=== PATIENT | female | born 1990 | race Hispanic/Latino ===

== ENCOUNTER 2023-06-06 12:31 | Emergency (ER) | payer OTHER ==
[2023-06-06 13:31] LABS: Specific Gravity 1.022 (1.005-1.030)
[2023-06-06 13:36] LABS: Specific Gravity 1.022 (1.005-1.030); Sqamous Epithelial <5 /HPF (None Seen); Urine Bacteria None Seen /HPF (<20); Urine Bilirubin NEGATIVE (Negative); Urine Blood Negative (Negative); Urine Clarity Clear (Clear); Urine Color Light-Yellow (Yellow); Urine Culture Reflex Order NOT NEEDED; Urine Glucose NEGATIVE (Negative); Urine Ketones NEGATIVE (Negative); Urine Microscopic Reflex YN ORDER UMIC; Urine Nitrite NEGATIVE (Negative); Urine Protein NEGATIVE (Negative); Urine RBC <5 /HPF (None Seen); Urine Urobilinogen Normal (Normal); Urine WBC <5 /HPF (<5)
[2023-06-06 13:40] LABS: Absolute Basophils 0.1 K/uL (0-0.5); Absolute Eosinophils 0.6 K/uL (0-0.5); Absolute Lymphocytes (CBC) 2.1 K/uL (0.7-4.9); Absolute Monocytes 0.5 K/uL (0.1-1.3); Absolute Neutrophil 6.7 K/uL (1.8-8.0); Basophils % 0.6 % (0-1.3); Hemoglobin 10.3 g/dL (12.0-15.0); Lymphocytes % 20.8 % (15.3-44.8); MCH 27.1 pg (27.0-35.0); MCHC 33.1 g/dL (32.0-36.0); MCV 81.9 fL (80-100); MPV 8.2 fL (7.6-11.3); Monocytes % 4.7 % (3.3-12.3); Neutrophils % 67.9 % (41.7-73.7); Platelets 241 thou/uL (152-406); RBC Red Blood Cell Count 3.79 M/uL (3.86-4.86); Red Cell Distribution Width 14.1 % (12.1-15.2)
[2023-06-06 14:13] LABS: Anion Gap 8.7 mEq/L (5.0-15.0); Potassium 3.7 mEq/L (3.5-5.1)
--- NOTE | 2023-06-06 15:06 | RAD REPORT ---
EXAM DESCRIPTION: US - OB Limited - 06/06/2023 2:28 pm CLINICAL HISTORY: with abdominal pain COMPARISON: None FINDINGS: Single live intrauterine transverse presentation. Cardiac activity 140 beats per minute. Normal amniotic fluid. Placenta is anterior. No subchorionic/retroplacental bleed. No placenta previa Cervix closed. Femur length 2.2 centimeters 16 weeks 5 days Uterine contraction visualized during the examination The right and left at adnexa unremarkable IMPRESSION: Single live intrauterine transverse presentation. Estimated gestational age 16 weeks 5 days ADDISON 11/16/2023 If a survey is desired it should be performed in approximately 1 and 1-2 weeks .
--- NOTE | 2023-06-06 15:10 | EDPHYS ---
Physician Documentation [facility] Name: Lacey Shaikh Age: 32 yrs Sex: Female : 1990 Arrival Date: 06/06/2023 Time: 12:31 Bed 25 Private MD: ED Physician Yvan Jennings HPI: 06/05 13:03 This 32 yrs old Female presents to ER via Unassigned with complaints of Abdominal Pain, kb 11 weeks . 13:03 Pt is a 32 year old female who presents for right sided abd pain that started this kb morning. Reports pain came on when she stood from standing and again when lifting one of her children. Also reports lower abd cramping over the last couple of days. LMP 03/2023. Positive pregnany test mid to late April. First OB appt scheduled for next week. Denies vaginal bleeding. A1. . 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 - Infectious Disease History:: Denies. - Social history:: Smoking status: Patient denies any tobacco usage or history of. ROS: 13:07 Constitutional: As per HPI kb Exam: 13:07 Constitutional: This is a well developed, well nourished patient who is awake, alert, kb and in no acute distress. Head/Face: Normocephalic, atraumatic. ENT: Moist Mucous membranes Cardiovascular: Regular rate Respiratory: Respirations even and unlabored. No increased work of breathing. Talking in full sentences Skin: Warm, dry with normal turgor. Normal color. MS/ Extremity: Pulses equal, no cyanosis. Neurovascular intact. Full, normal range of motion. Neuro: Awake and alert, GCS 15, oriented to person, place, time, and situation. Moves all extremities. Normal gait. 13:07 Abdomen/GI: Inspection: abdomen appears normal, Bowel sounds: normal, in all quadrants, Palpation: soft, in all quadrants, mild abdominal tenderness, in the suprapubic area, Vital Signs: 13:01 BP 116 / 56; Pulse 93; Resp 18 S; Temp 97.8(TE); Pulse Ox 99% on R/A; aa5 MDM: 13:00 Patient medically screened. kb 13:07 Data reviewed: vital signs, nurses notes. kb 13:08 Differential diagnosis: threatened Ab, ectopic , uti. kb 15:08 Counseling: I had a detailed discussion with the patient and/or guardian regarding the kb historical points, exam findings, and any diagnostic results supporting the discharge/admit diagnosis, lab results, radiology results, the need for outpatient follow up, an OB/Gyne specialist, to return to the emergency department if symptoms worsen or persist or if there are any questions or concerns that arise at home. 06/05 13:08 Order name: Abo/rh Typing; Complete Time: 14:27 kb 06/05 13:08 Order name: Basic Metabolic Panel; Complete Time: 14:15 kb 06/05 13:08 Order name: CBC with Diff; Complete Time: 14:06 kb 06/05 13:08 Order name: Test, Urine; Complete Time: 13:32 kb 06/05 13:08 Order name: Quantitative Hcg; Complete Time: 14:15 kb 06/05 13:08 Order name: Urinalysis w/ reflexes; Complete Time: 13:50 kb 06/05 13:55 Order name: OB Limited; Complete Time: 15:06 EDMS 06/05 13:08 Order name: IV Saline Lock; Complete Time: 13:32 kb 06/05 13:08 Order name: Labs collected and sent; Complete Time: 13:32 kb 06/05 13:08 Order name: NPO; Complete Time: 13:32 kb Administered Medications: No medications were administered Disposition Summary: 06/06/23 15:10 Discharge Ordered Notes: Location: Home kb Condition: Stable kb Diagnosis - Lower abdominal pain, unspecified kb - 16 weeks gestation of kb Followup: kb - With: Emergency Department - When: As needed - Reason: Worsening of condition Followup: kb - With: Private Physician - When: 2 - 3 days - Reason: Recheck today's complaints, Continuance of care, Re-evaluation by your physician Discharge Instructions: - Discharge Summary Sheet kb - Pelvic Pain, Female, [id number] kb - Abdominal Pain During , [id number] kb Forms: - Medication Reconciliation Form kb - Antibiotic Education kb - Prescription Opioid Use kb - Patient Portal Instructions kb - Leadership Thank You Letter kb Signatures: Dispatcher [employer] EDMS Ann Lawler, GUIDANCE DIRECTOR-C GUIDANCE DIRECTOR-Lani Balderas, RN RN aa5 Corrections: (The following items were deleted from the chart) 13: 13:07 PMHx: None; aa5 aa5 13: 13:07 PMHx: D\T\C; aa5 aa5 13: 13:09 ABO/RH TYPING+BB.LAB.BRZ ordered. EDMS EDMS : 13:09 BASIC METABOLIC PANEL+C.LAB.BRZ ordered. EDMS EDMS : 13:09 CBC+H.LAB.BRZ ordered. EDMS EDMS : 13:09 Test, Urine+UC.LAB.BRZ ordered. EDMS EDMS : 13:09 QUANTITATIVE HCG+C.LAB.BRZ ordered. EDMS EDMS : 13:09 Urinalysis+U.LAB.BRZ ordered. EDMS EDMS : 13:09 Transvaginal Ob+US.RAD.BRZ ordered. EDMS EDMS
--- NOTE | 2023-06-06 15:10 | ER ---
Nurse's Notes [facility] Name: Lacey Shaikh Age: 32 yrs Sex: Female : 1990 Arrival Date: 06/06/2023 Time: 12:31 Bed 25 Private MD: Diagnosis: Lower abdominal pain, unspecified;16 weeks gestation of Presentation: 06/05 13:01 Chief complaint: Patient states: "I got a positive test in the middle of aa14 april". Pt reports lower abdominal cramping that began 2 days ago, reports pain to right lower abdomen, pt states "right where the area is at", denies vaginal bleeding. 13:01 Acuity: MACHELLE 3 aa5 13:01 Method Of Arrival: Ambulatory aa5 13:01 Coronavirus screen: At this time, the client does not indicate any symptoms associated aa5 with coronavirus-19. Ebola Screen: Patient denies travel to an Ebola-affected area in the 21 days before illness onset. Initial Sepsis Screen: Does the patient meet any 2 criteria? No. Patient's initial sepsis screen is negative. Does the patient have a suspected source of infection? No. Patient's initial sepsis screen is negative. Risk Assessment: Do you want to hurt yourself or someone else? Patient reports no desire to harm self or others. Onset of symptoms was May 2023. 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 - Infectious Disease History:: Denies. - Social history:: Smoking status: Patient denies any tobacco usage or history of. Screenin:00 [facility] ED Fall Risk Assessment (Adult) History of falling in the last 3 months, hb including since admission No falls in past 3 months (0 pts) Confusion or Disorientation No (0 pts) Intoxicated or Sedated No (0 pts) Impaired Gait No (0 pts) Mobility Assist Device Used No (0 pt) Altered Elimination No (0 pt) Score/Fall Risk Level 0 - 2 = Low Risk Oriented to surroundings, Maintained a safe environment, Educated pt \\T\\ family on fall prevention, incl call for assistance when getting out of bed. Abuse screen: Denies threats or abuse. Denies injuries from another. Nutritional screening: No deficits noted. Tuberculosis screening: No symptoms or risk factors identified. Assessment: 14:51 General: Appears in no apparent distress. Behavior is calm, cooperative. Pain: Pain hb currently is 3 out of 10 on a pain scale. Neuro: Level of Consciousness is awake, alert, obeys commands, Oriented to person, place, time, situation. Cardiovascular: Patient's skin is warm and dry. Respiratory: Respiratory effort is even, unlabored, Respiratory pattern is regular, symmetrical. GI: Reports lower abdominal pain. : No signs and/or symptoms were reported regarding the genitourinary system. EENT: No signs and/or symptoms were reported regarding the EENT system. Derm: Skin is pink, warm \\T\\ dry. Musculoskeletal: No signs and/or symptoms reported regarding the musculoskeletal system. Vital Signs: 13:01 BP 116 / 56; Pulse 93; Resp 18 S; Temp 97.8(TE); Pulse Ox 99% on R/A; aa5 ED Course: 12:36 Patient arrived in ED. im 13:00 [facility] Lawler [facility]NP-C [facility] kb 13:00 Yvan Jennings MD is Attending Physician. kb 13:01 Arm band placed on. aa5 13:02 Triage completed. aa5 13:19 Urine collected: clean catch specimen, sent to lab. aa5 13:32 Initial lab(s) drawn, by sd, sent to lab. Inserted saline lock: 20 gauge in left jg11 antecubital area, using aseptic technique. Blood collected. 13:32 Abo/rh Typing Sent. jg11 13:32 Basic Metabolic Panel Sent. jg11 13:32 CBC with Diff Sent. jg11 13:32 Quantitative Hcg Sent. jg11 14:28 Patient taken to ultrasound. hb 14:29 OB Limited In Process Unspecified. EDMS 14:50 Patient moved back from ultrasound. hb 14:58 Anitha Ramirez, RN is Primary Nurse. hb 15:00 Patient has correct armband on for positive identification. Provided Education on: hb tests, result times, use of call light. 15:00 No provider procedures requiring assistance completed. hb 15:11 IV discontinued, intact, bleeding controlled, No redness/swelling at site. Pressure hb dressing applied. Administered Medications: No medications were administered Medication: 15:00 VIS not applicable for this client. hb Outcome: 15:10 Discharge ordered by . [place] 15:11 Discharged to home ambulatory, hb 15:11 Condition: stable 15:11 Discharge instructions given to patient, Instructed on discharge instructions, follow up and referral plans. medication usage, Demonstrated understanding of instructions, follow-up care, medications, 15:12 Patient left the ED. hb Signatures: Dispatcher [employer] EDHI Ann Lawler, CODE OFFICIAL-C CODE OFFICIAL-Lani Balderas RN RN aa5 Anitha Ramirez, DAI RN Rosamaria Gunn Jordan jg11 Corrections: (The following items were deleted from the chart) 13:05 13:01 Chief complaint: Patient states: "I got a positive test in the middle aa5 of april". Pt reports lower abdominal cramping that began 2 days ago, denies vaginal bleeding. aa5 13:06 13:01 LMP 02/09/2023, unknown aa5 aa5 13:08 13:07 PMHx: None; aa5 aa5 13:08 13:07 PMHx: D\\T\\C; aa5 aa5
[2023-06-06 15:51] VITALS: BP 116/56; TEMP 97.8; O2SAT 99
== END 2023-06-06 15:12 | disposition home or self-care (01) ==
LOC: ER 12:31
DX: O26.892 Other specified pregnancy related conditions, second trimester (principal); Z3A.16 16 weeks gestation of pregnancy
CPT/HCPCS: 36415; 76815; 80048; 81001; 81025; 84702; 85025; 86900; 86901

== ENCOUNTER 2023-08-02 13:41 | Emergency (ER) | payer OTHER, SELFPAY ==
--- OUTSIDE RECORDS SUMMARY | 2023-08-02 13:46 | XMS REPORT | Continuity of Care Document ---
Author Name Unknown Address [address] [facility] [address] [place] [address] [facility] thconnect Address [address] 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 Role Phone Pcp, Patient Does Not Have A Primary Care Physic dolly SUSANNE YAÑEZ Attending Clinician Jorge Pritchard MD Attending Clinician [phone] DIPAK ANDERSEN Attending Clinician UnavailDipak Velasco MD Attending Clinician JORGE LOZADA Attending Clinician Unavailable Doctor Unassigned, [place] Attending Clinician U navailable Room, [facility] Attending Clinician Unavailable NILAY HADLEY Attending Clinician Unabrooks gomez Ultrasound, [facility] Attending Clinician UnavailSusanne Huston MD Attending Clinician + Nilay Hadley MD Attending Clinician + Nellie Joseph DO Attending Clinician [phone] NELLIE JOSEPH Attending Clinician Unavailable Thomas Flowers NP Attending Clinician [phone] THOMAS FLOWERS Attending Clinician Unavaila gavi 1, [facility] Attending Clinician Unavailab VANGIE Troncoso Attending Clinician Un available DIPAK ANDERSEN Admitting Clinician Unavaila Dipak Lopez MD Admitting Clinician [phone] JORGE LOZADA Admitting Clinician Unavailable Jorge Lozada MD Admitting Clinician Payers Payer Name Policy Type Policy Number Effective Date Expirati on Date Source [place] [employer] [id number] 2022 00:00:00 Problems Condition Name Condition Details Condition Category Status Onset Date Resolution Date Last Treatment Date Treating Clinician Comments Source Status post section Status post section Disease Active 0 - 00:00: 00 [facility] Acute blood loss anemia Acute blood loss anemia Disease Active 5 00:00: 00 [facility] 34 weeks gestation of 34 weeks gestation of Disease Active 5- 00:00: 00 [facility] Obesity (BMI 30-39.9) Obesity (BMI 30-39.9) Disease Active 5-22 00:00: 00 [facility] Poor growth affecting management of mother in third trimester, fetus 2 of multiple gestation Poor growth affecting management of mother in third trimester, fetus 2 of multiple gestation Disease Active 0 5-18 00:00: 00 [facility] Low back pain during in third trimester Low back pain during in third trimester Disease Active 0 4-20 00:00: 00 [facility] High-risk in third trimester High-risk in third trimester Disease Active 3-09 00:00: 00 [facility] Monochorio charmaine diamniotic twin gestation in third trimester Monochorio charmaine diamniotic twin gestation in third trimester Disease Active 2-24 00:00: 00 [facility] No known active problems No known active problems Disease [facility] Allergies, Adverse Reactions, Alerts Allergy Name Allergy Type Status Severity Reaction(s) Onset Date Inactive Date Treating Clinician Comments Source NO KNOWN ALLERGIE S Drug Class Active [facility] Social History Social Habit Start Date Stop Date Quantity Comments Source ASSERTION 2021-11-15 00:00:00 [facility] Alcohol intake 2022-07-03 00:00:00 2022-07-03 00:00:00 Ex-drinker (finding) [facility] Exposure to SARS-CoV-2 (event) 2022-06-17 00:00:00 2022-06-27 11:06:00 Not sure [facility] Tobacco use and exposure 2022-03-07 00:00:00 2022-03-07 00:00:00 Smokeless tobacco non-user [facility] Sex Assigned At 1990 00:00:00 1990 00:00:00 [facility] Smoking Status Start Date Stop Date Source Never smoked tobacco [facility] Medications Ordered Medication Name Filled Medication Name Start Date Stop Date Current Medication? Ordering Clinician Indication Dosage Frequency Signature (SIG) Comments Components Source ferrous sulfate tablet 325 mg 07-05 14:00: 00 Yes 325mg 325 mg, Oral, QM// FRI, First dose (after last modificati on) on Fri07/05/22 at 0900, Until Discontinu ed, Routine [facility] 25/iron fum/folic/d pennington (-1 ORAL) 07-04 03:59: 40 07-04 00:00 :00 No Take by mouth. [facility] [id number] fum-folic () 27 mg iron- 1 mg folic tablet 07-04 00:00: 00 Yes [id number] 1{tbl} Take 1 tablet by mouth in the morning. [facility] docusate 100 mg capsule 07-04 00:00: 00 Yes [id number] 200mg Take 2 capsules by mouth once daily as needed for Constipati on. [facility] ibuprofen 600 mg tablet 07-04 00:00: 00 Yes [id number] 600mg Take 1 tablet by mouth every 6 (six) hours as needed (Pain). Take with food or milk. [facility] ferrous sulfate 325 mg (65 mg iron) tablet 07-04 00:00: 00 Yes [id number] 325mg Take 1 tablet by mouth in the morning. [facility] simethicone 80 mg chewable tablet 07-04 00:00: 00 Yes [id number] 80mg Take 1 tablet by mouth after meals and at bedtime. [facility] HYDROcodone -acetaminop hen 5-325 mg tablet 07-04 00:00: 00 07-12 04:59 :00 No [id number] 1{tbl} Take 1 tablet by mouth every 6 (six) hours as needed for Pain (scale 7-10) (Pain scale above 4) for up to 7 days. Do not exceed 3 grams of acetaminop hen in 24 hours. Indication s: acute pain [facility] oxyCODONE immediate release tablet 5 mg 07-02 22:01: 48 Yes 5mg 5 mg, Oral, Q6HPRN, Starting on Fri07/02/22 at 1701, Until Discontinu ed, Routine, Breakthrou gh pain not relieved with Scheduled Tylenol and ibuprofen< br>solar crew member approving Restricted medication : OSEI PARKS [facility] ibuprofen (IBU) tablet 800 mg 07-02 17:00: 00 Yes 800mg 800 mg, Oral, Q6H, First dose (after last modificati on) on Fri07/02/22 at 1200, Until Discontinu ed, Routine [facility] acetaminoph en (TYLENOL) tablet 650 mg 07-02 17:00: 00 Yes 650mg 650 mg, Oral, Q6H, First dose on Fri07/02/22 at 1200, Until Discontinu ed, Routine [facility] ascorbic acid (vitamin C) (VITAMIN C) tablet 500 mg 07-02 14:00: 00 Yes 500mg 500 mg, Oral, DAILY, First dose on Fri07/02/22 at 0900, Until Discontinu ed, Routine [facility] foLIC acid (FOLATE) tablet 1 mg 07-02 14:00: 00 Yes 1mg 1 mg, Oral, DAILY, First dose on Fri07/02/22 at 0900, Until Discontinu ed, Routine [facility] sennosides- docusate sodium (SENOKOT-S) 8.6-50 mg per tablet 1 tablet 07-02 14:00: 00 Yes 1{tbl} 1 tablet, Oral, DAILY, First dose on Fri07/02/22 at 0900, Until Discontinu ed, Routine [facility] ferrous sulfate tablet 325 mg 07-02 13:00: 00 07-03 15:24 :22 No 325mg 325 mg, Oral, TID MEALS, First dose on Fri07/02/22 at 0800, Until Discontinu ed, Routine [facility] famotidine (PEPCID AC) tablet 20 mg 07-02 01:00: 00 Yes 20mg 20 mg, Oral, BID, First dose on Fri07/01/22 at 2000, Until Discontinu ed, Routine [facility] polyethylen e glycol 3350 powder 17 g 07-01 23:00: 00 Yes 17g 17 g, Oral, DAILY, First dose on Fri07/01/22 at 1800, Until Discontinu ed, Routine [facility] ibuprofen (IBU) tablet 600 mg 07-01 23:00: 00 07-02 16:22 :44 No 600mg 600 mg, Oral, Q6H, First dose on Fri07/01/22 at 1800, Until Discontinu ed, Routine [facility] lactated ringers IV infusion 1,000 mL 07-01 22:15: 00 07-02 04:10 :00 No 1000mL at 125 mL/hr, 1,000 mL, IV Infusion, ONCE, 1 dose, On Fri07/01/22 at 1715, Routine [facility] rho(D) immune globulin (RHOGAM) syringe 300 mcg 07-01 22:02: 50 Yes 300ug 300 mcg, Intramuscu lar, ONCE, For 1 dose, Conditiona l, Routine [facility] diphenhydrA MINE (BENADRYL) injection 25 mg 07-01 22:02: 46 Yes 25mg 25 mg, Slow IV Push, Q6HPRN, Starting on Fri07/01/22 at 1702, Until Discontinu ed, Routine, Itching [facility] diphenhydrA MINE (BENADRYL) tablet 25 mg 07-01 22:02: 46 Yes 25mg 25 mg, Oral, Q6HPRN, Starting on Fri07/01/22 at 1702, Until Discontinu ed, Routine, Sleep, Itching [facility] ondansetron (ZOFRAN (PF)) injection 4 mg 07-01 22:02: 46 Yes 4mg 4 mg, Slow IV Push, Q8HPRN, Starting on Fri07/01/22 at 1702, Until Discontinu ed, Routine, Nausea and Vomiting (N/V) [facility] bisacodyL (DULCOLAX) suppository 10 mg 07-01 22:02: 46 Yes 10mg 10 mg, Rectal, QDAILYPRN, Starting on Fri07/01/22 at 170, Until Discontinu ed, Routine, Constipati on [facility] simethicone (GAS RELIEF (SIMETHICON E)) chewable tablet 160 mg 07-01 22:02: 46 Yes 160mg 160 mg, Oral, PC+HSPRN, Starting on Fri07/01/22 at 1702, Until Discontinu ed, Routine, Gas [facility] docusate (COLACE) capsule 200 mg 07-01 22:02: 46 Yes 200mg 200 mg, Oral, QDAILYPRN, Starting on Fri07/01/22 at 1702, Until Discontinu ed, Routine, Constipati on [facility] magnesium hydroxide (MILK OF MAGNESIA) 400 mg/5 mL suspension 30 mL 07-01 22:02: 46 Yes 30mL 30 mL, Oral, QDAILYPRN, Starting on Fri07/01/22 at 1702, Until Discontinu ed, Routine, Constipati on [facility] lactated ringers IV infusion 1,000 mL 07-01 22:02: 46 Yes 1000mL at 125 mL/hr, 1,000 mL, IV Infusion, PRN, 1 dose, Starting on Fri07/01/22 at 1702, Until Discontinu ed, Routine [facility] acetaminoph en ADULT (OFIRMEV) injection 1,000 mg 07-01 20:30: 00 07-01 20:13 :00 No 1000mg 1,000 mg, IV Infusion, at 400 mL/hr Administer over 15 Minutes, ONCE, 1 dose, On Fri07/01/22 at 1530, Routine
Indicatio n: Non-periop erative Patient
Approved by: Anesthesia Pain Service [facility] lactated ringers IV infusion 1,000 mL 07-01 17:45: 00 07-01 22:02 :57 No 1000mL at 125 mL/hr, 1,000 mL, IV Infusion, CONTINUOUS , Starting on Fri07/01/22 at 1245, Until Fri07/01/22 at 1702, AYAKA [facility] ceFAZolin (ANCEF) 2,000 mg in NaCl 0.9% (NS) 100 mL MINI-BAG 07-01 14:00: 00 07-01 16:23 :00 No 2000mg 2,000 mg, IV Piggyback, ONCE, 1 dose, On Fri07/01/22 at 0900, Administer over 30 Minutes, 100 mL
Reas on for Anti-Infec tive: Surgical Prophylaxi s
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
Duration of therapy: within 24 hours of surgery [facility] sodium citrate-cit andreea acid (BICITRA) 500-334 mg/5 mL solution 30 mL 07-01 12:39: 42 07-01 15:53 :00 No 30mL 30 mL, Oral, PRE-PROCED URE ONCE, 1 dose, Starting on Fri07/01/22 at 0739, Until Discontinu ed, Routine, Surgery/Pr ocedure [facility] 25/iron fum/folic/d penning[place] (-1 ORAL) 07-01 07:09: 03 Yes Take by mouth. [facility] betamethaso ne acet,sod phos (CELESTONE SOLUSPAN) 6 mg/mL injection 12 mg 06-28 20:16: 00 06-28 20:31 :00 No 12mg 12 mg, Intramuscu lar, ONCE, 1 dose, On Fri06/28/22 at 1530, Routine [facility] 25/iron fum/folic/d penning[place] (-1 ORAL) 06-28 16:05: 10 Yes Take by mouth. [facility] betamethaso ne acet,sod phos (CELESTONE SOLUSPAN) 6 mg/mL injection 12 mg 06-27 20:06: 00 06-27 20:38 :00 No 12mg 12 mg, Intramuscu lar, ONCE, 1 dose, On Vickie 06/27/22 at 1515, Routine [facility] 25/iron fum/folic/d penning[place] (-1 ORAL) 06-27 16:13: 33 Yes Take by mouth. [facility] 25/iron fum/folic/d penning[place] (-1 ORAL) 3-03 15:38: 06 Yes Take by mouth. [facility] 25/iron fum/folic/d penning[place] (-1 ORAL) 2-24 11:00: 23 Yes Take by mouth. [facility] 25/iron fum/folic/d [place] (-1 ORAL) 1-26 14:42: 51 Yes Take by mouth. [facility] Vital Signs Vital Name Observation Time Observation Value Comments S rohit Systolic blood pressure 2022-07-04 13:41:00 110 mm[Hg] [facility] Diastolic blood pressure 2022-07-04 13:41:00 73 mm[Hg] [facility] Heart rate 2022-07-04 13:41:00 72 /min [facility] Body temperature 2022-07-04 13:41:00 36.39 Perla [facility] Respiratory rate 2022-07-04 13:41:00 18 /min [facility] Oxygen saturation in Arterial blood by Pulse oximetry 2022-07-04 13:41:00 99 /min [facility] Body height 2022-07-01 12:49:00 162.6 cm [facility] Body weight 2022-07-01 12:49:00 84.369 kg [facility] BMI 2022-07-01 12:49:00 31.93 kg/m2 [facility] Systolic blood pressure 2022-07-01 20:00:00 134 mm[Hg] [facility] Diastolic blood pressure 2022-07-01 20:00:00 78 mm[Hg] [facility] Heart rate 2022-07-01 20:00:00 50 /min [facility] Respiratory rate 2022-07-01 20:00:00 12 /min [facility] Oxygen saturation in Arterial blood by Pulse oximetry 2022-07-01 20:00:00 96 /min [facility] Body temperature 2022-07-01 18:45:00 36.17 Perla [facility] Body height 2022-07-01 12:49:00 162.6 cm [facility] Body weight 2022-07-01 12:49:00 84.369 kg [facility] BMI 2022-07-01 12:49:00 31.93 kg/m2 [facility] Heart rate 2022-06-28 20:15:00 79 /[facility] Oxygen saturation in Arterial blood by Pulse oximetry 2022-06-28 20:15:00 98 /min [facility] Systolic blood pressure 2022-06-28 20:10:00 130 mm[Hg] [facility] Diastolic blood pressure 2022-06-28 20:10:00 70 mm[Hg] [facility] Respiratory rate 2022-06-28 20:10:00 20 /min [facility] Systolic blood pressure 2022-06-27 20:21:00 122 mm[Hg] [facility] Diastolic blood pressure 2022-06-27 20:21:00 71 mm[Hg] [facility] Heart rate 2022-06-27 20:21:00 79 /min [facility] Body temperature 2022-06-27 20:21:00 37.22 Perla [facility] Respiratory rate 2022-06-27 20:21:00 18 /min [facility] Oxygen saturation in Arterial blood by Pulse oximetry 2022-06-27 20:21:00 98 /min [facility] Systolic blood pressure 2022-06-27 18:37:00 122 mm[Hg] [facility] Diastolic blood pressure 2022-06-27 18:37:00 60 mm[Hg] [facility] Heart rate 2022-06-27 18:37:00 76 /min [facility] Body temperature 2022-06-27 18:37:00 36.61 Perla [facility] Respiratory rate 2022-06-27 18:37:00 18 /min [facility] Body height 2022-06-27 18:37:00 162.6 cm [facility] Body weight 2022-06-27 18:37:00 84.55 kg [facility] BMI 2022-06-27 18:37:00 32.00 kg/m2 [facility] Systolic blood pressure 2022-06-21 18:32:00 110 mm[Hg] [facility] Diastolic blood pressure 2022-06-21 18:32:00 66 mm[Hg] [facility] Heart rate 2022-06-21 18:32:00 80 /min [facility] Body temperature 2022-06-21 18:32:00 36.44 Perla [facility] Respiratory rate 2022-06-21 18:32:00 18 /min [facility] Body height 2022-06-21 18:32:00 162.6 cm [facility] Body weight 2022-06-21 18:32:00 81.557 kg [facility] BMI 2022-06-21 18:32:00 30.86 kg/m2 [facility] Systolic blood pressure 2022-06-17 16:02:00 114 mm[Hg] [facility] Diastolic blood pressure 2022-06-17 16:02:00 63 mm[Hg] [facility] Heart rate 2022-06-17 16:02:00 85 /min [facility] 2022-06-17 16:02:00 36.28 Perla [facility] Body height 2022-06-17 16:02:00 162.6 cm [facility] weight 2022-06-17 16:02:00 81.285 kg [facility] BMI 2022-06-17 16:02:00 30.76 kg/m2 [facility] Systolic blood pressure 2022-06-13 14:22:00 103 mm[Hg] [facility] Diastolic blood pressure 2022-06-13 14:22:00 64 mm[Hg] [facility] Heart rate 2022-06-13 14:22:00 80 /min [facility] Body temperature 2022-06-13 14:22:00 36.67 Perla [facility] Respiratory rate 2022-06-13 14:22:00 18 /min [facility] Body height 2022-06-13 14:22:00 162.6 cm [facility] Body weight 2022-06-13 14:22:00 80.468 kg [facility] BMI 2022-06-13 14:22:00 30.45 kg/m2 [facility] Systolic blood pressure 2022-05-30 21:08:00 112 mm[Hg] [place] [facility] Diastolic blood pressure 2022-05-30 21:08:00 47 mm[Hg] [facility] Heart rate 2022-05-30 21:08:00 85 /min [facility] Body temperature 2022-05-30 21:08:00 36.44 Perla [facility] Respiratory rate 2022-05-30 21:08:00 18 /min [facility] Body height 2022-05-30 21:08:00 162.6 cm [facility] weight 2022-05-30 21:08:00 77.565 kg [facility] BMI 2022-05-30 21:08:00 29.35 kg/m2 [facility] Systolic blood pressure 2022-04-18 15:16:00 110 mm[Hg] [facility] Diastolic blood pressure 2022-04-18 15:16:00 59 mm[Hg] [facility] Heart rate 2022-04-18 15:16:00 79 /min [facility] Body temperature 2022-04-18 15:16:00 36.72 Perla [facility] Body weight 2022-04-18 15:16:00 71.487 kg [facility] BMI 2022-04-18 15:16:00 27.05 kg/m2 [facility] Systolic blood pressure 2022-04-12 20:48:00 117 mm[Hg] [facility] Diastolic blood pressure 2022-04-12 20:48:00 49 mm[Hg] [facility] Heart rate 2022-04-12 20:48:00 93 /min [facility] Body temperature 2022-04-12 20:48:00 36.89 Perla [facility] Respiratory rate 2022-04-12 20:48:00 20 /min [facility] Oxygen saturation in Arterial blood by Pulse oximetry 2022-04-12 20:48:00 99 /min [facility] Body weight 2022-04-12 20:05:00 71.305 kg [facility] BMI 2022-04-12 20:05:00 26.98 kg/m2 [facility] Systolic blood pressure 2022-04-05 16:59:00 105 mm[Hg] [facility] Diastolic blood pressure 2022-04-05 16:59:00 64 mm[Hg] [facility] Heart rate 2022-04-05 16:59:00 66 /min [facility] Respiratory rate 2022-04-05 16:59:00 18 /min [facility] Body height 2022-04-05 16:59:00 162.6 cm [facility] Body weight 2022-04-05 16:59:00 70.308 kg [facility] BMI 2022-04-05 16:59:00 26.61 kg/m2 [facility] Systolic blood pressure 2022-03-07 20:40:00 112 mm[Hg] [facility] Diastolic blood pressure 2022-03-07 20:40:00 63 mm[Hg] [facility] Heart rate 2022-03-07 20:40:00 95 /min [facility] Body temperature 2022-03-07 20:40:00 36.72 Perla [facility] Respiratory rate 2022-03-07 20:40:00 18 /min [facility] Body height 2022-03-07 20:40:00 162.6 cm [facility] Body weight 2022-03-07 20:40:00 65.318 kg [facility] BMI 2022-03-07 20:40:00 24.72 kg/m2 [facility] Procedures Procedure Date / Time Performed Performing Clinician Source CBC WITH DIFF [facility]22-07-02 08[facility]02 [facility] ROUTINE & RHYTHM STRIP 2022-07-01 [facility] RHYTHM STRIP 2022-07-01 18:27:48 [facility] CBC WITHOUT DIFF 2022-07-01 18:15:00 Odalys Wu [facility] CBC WITHOUT DIFF 2022-07-01 18:15:00 Odalys Wu [facility] VENOUS CORD GAS 2022-07-01 17:05:00 Dipak Andersen [facility] VENOUS CORD GAS 2022-07-01 17:05:00 Dipak Andersen [facility] SECTION 2022-07-01 15:52:00 Dipak Andersen [facility] SECTION 2022-07-01 15:52:00 Dipak Andersen [facility] ABORH CONFIRMATION (LAB ONLY) 2022-07-01 14:42:00 Dipak Andersen [facility] ABORH CONFIRMATION (LAB ONLY) 2022-07-01 14:42:00 Dipak Andersen [facility] CBC WITH DIFF 2022-07-01 13:50:00 Delores [facility] RUBELLA SCREEN IGG 2022-07-01 13:50:00 Estrella, [facility] HEPATITIS B SURFACE ANTIGEN 2022-07-01 13:50:00 Estrella, [facility] HB ABO GROUPING 2022-07-01 13:50:00 Sonya Estrella [facility] RHO (D) IMMUNE GLOBULIN 2022-07-01 13:50:00 Me Gavin [facility] HIV 1/2 AG-AB WITH REFLEX 2022-07-01 13:50:00 Estrella, [facility] SYPHILIS IGG/IGM 2022-07-01 13:50:00 Sonya Estrella [facility] CBC WITH DIFF 2022-07-01 13:50:00 Delores [facility] RUBELLA SCREEN IGG 2022-07-01 13:50:00 Estrella, [facility] HEPATITIS B SURFACE ANTIGEN 2022-07-01 13:50:00 Estrella, [facility] HB ABO GROUPING 2022-07-01 13:50:00 Sonya Estrella [facility] RHO (D) IMMUNE GLOBULIN 2022-07-01 13:50:00 Me Gavin [facility] HIV 1/2 AG-AB WITH REFLEX 2022-07-01 13:50:00 Estrella, [facility] SYPHILIS IGG/IGM 2022-07-01 13:50:00 Sonya Estrella [facility] POCT GLUCOSE (AUTOMATED) 2022-07-01 13:21:00 G[facility] POCT GLUCOSE (AUTOMATED) 2022-07-01 13:21:00 Dipak Andersen [facility] HOSPITAL ADMISSION 2022-07-01 05:01:00 Doctor Un assigned, [place] [facility] NON-STRESS TEST 2022-06-28 01:59:44 Jorge Lozada [facility] CONSENT/REFUSAL FOR DIAGNOSIS AND TREATMENT 2022-06-27 19:47:49 Doctor Unassigned, [place] [facility] ASSIGNMENT OF BENEFITS 2022-06-27 19:47:33 Docto r Unassigned, [place] [facility] NON-STRESS TEST 2022-06-21 19:05:40 Katie Agudelo [facility] >14 WEEKS US LIMITED 2022-06-21 19:05:28 Riana Agudelo [facility] NON-STRESS TEST 2022-06-17 16:37:08 Jorge Lozada [facility] NON-STRESS TEST 2022-06-13 15:20:07 Jorge Lozada [facility] POCT URINALYSIS W/O SPECIFIC GRAVITY 2022-06-13 00:00:00 Jorge Lozada [facility] POCT URINALYSIS W/O SPECIFIC GRAVITY 2022-05-30 21:12:00 Jorge Lozada [facility] POCT URINALYSIS W/O SPECIFIC GRAVITY 2022-04-18 00:00:00 Jorge Lozada [facility] AUTHORIZATION FOR RELEASE OF PHI 2022-04-13 06:01:00 Doctor Unassigned, [place] [facility] CONSENT/REFUSAL FOR DIAGNOSIS AND TREATMENT 2022-04-12 19:52:31 Doctor Unassigned, [place] [facility] AUTHORIZATION FOR RELEASE OF PHI 2022-04-12 06:01:00 Doctor Unassigned, [place] [facility] L&D VISIT (NON-DELIVERED) 2022-04-12 06:01:00 Doctor Unassigned, [place] [facility] AUTHORIZATION FOR RELEASE OF PHI 2022-04-12 06:01:00 Doctor Unassigned, [place] [facility] L&D VISIT (NON-DELIVERED) 2022-04-12 06:01:00 Doctor Unassigned, [place] [facility] POCT URINALYSIS W/O SPECIFIC GRAVITY 2022-04-05 00:00:00 Thomas Flowers [facility] SECOND AND THIRD TRIMESTER ULTRASOUND 2022-04-04 18:04:00 Thomas Flowers [facility] SECOND AND THIRD TRIMESTER ULTRASOUND 2022-03-15 21:33:00 Thomas Flowers [facility] ASSIGNMENT OF BENEFITS 2022-03-15 20:16:19 Docto r Unassigned, [place] [facility] POCT TEST 2022-03-07 22:23:00 Rodo Flowers [facility] POCT URINALYSIS W/O SPECIFIC GRAVITY 2022-03-07 22:23:00 Thomas Flowers [facility] Encounters Start Date/Time End Date/Time Encounter Type Admission Type Attending Clinicians Care Facility Care Department Encounter ID Source 2022-03-14 14:14:36 Outpatient [facility] [id number] [facility] 2022-07-10 10:45:00 2022-07-10 10:45:00 Outpatient P SUSANNE REYNOSO [facility] [id number] [facility] 2022-07-10 00:00:00 2022-07-10 00:00:00 Telephone Jorge Lozada [facility] [id number] [place] [facility] 07:08:00 2022-07-04 16:41:00 Inpatient X DIPAK ANDERSEN [facility] [id number] [facility] 2022-07-01 07:08:00 2022-07-04 16:41:00 Hospital Encounter AndersenDipak vivas [facility] 1..840.114 350.1.13.10 4.2.7.2.686 [id number] [facility] 2022-07-02 13:00:00 2022-07-02 13:00:00 Outpatient R JORGE LOZADA [facility] [id number] [facility] 2022-07-01 13:05:00 2022-07-01 15:10:00 Surgery AndersenDipak [facility] 1.2.840.114 350.1.13.10 4.2.7.2.686 [id number] [id number] [facility] 2022-07-01 00:00:00 2022-07-01 00:00:00 Orders Only Doctor Unassigned, [place] Crossing [facility] 1.2.840.114 350.1.13.10 4.2.7.2.686 [id number] [facility] 2022-06-28 14:57:00 2022-06-28 15:55:00 Outpatient P JORGE LOZADA [facility] [id number] [facility] 2022-06-28 14:57:00 2022-06-28 15:55:00 Hospital Encounter Neville Jorge [facility] 1.2.840.114 350.1.13.10 4.2.7.2.686 [id number] [id number] [facility] 2022-06-28 00:00:00 2022-06-28 00:00:00 Telephone Jorge Lozada [facility] 1.2840.114 350.1.13.10 4.2.7.2.686 [id number] 134 [id number] [facility] 2022-06-27 14:40:00 2022-06-27 16:10:00 Outpatient P JORGE LOZADA [facility] [id number] [facility] 2022-06-27 14:40:00 2022-06-27 16:10:00 Hospital Encounter NevilleJorge [facility] 1.2.840.114 350.1.13.10 4.2.7.2.686 [id number] [id number] [facility] 2022-06-27 13:00:00 2022-06-27 14:08:07 Routine Visit Room, Adc Nst Jorge Lozada [facility] 1.2.840.114 350.1.13.10 4.2.7.2.686 [id number] 134 [id number] [facility] 2022-06-27 11:00:00 2022-06-27 12:00:31 Outpatient Luciano NILAY HADLEY [facility] [id number] [facility] 2022-06-27 11:00:00 2022-06-27 12:00:00 Patient Financial Services Specialist Visit Ultrasound, Susanne Horner Nilay Hadley Johnathanuvcamilo [facility] W[employer]UR[employer] SERVICE TECHNICIAN [facility] 1.2.840.114 350.1.13.10 4.2.7.2.686 [id number] [facility] 2022-06-24 13:00:00 2022-06-24 13:00:00 Outpatient R NEVILLE [facility] [id number] [facility] 2022-06-21 13:00:00 2022-06-21 13:15:00 Routine Visit Room, [facility] Neville [facility] 1.2.840.114 350.1.13.10 4.2.7.2.686 [id number] 134 [id number] [facility] 2022-06-21 13:00:00 2022-06-21 13:00:00 [facility] [id number] 2022-06-20 10:00:00 2022-06-20 10:00:00 Outpatient R [facility] [id number] [facility] 2022-06-17 11:00:00 2022-06-17 11:15:00 Routine Visit Room, [facility] 1.2.840.114 350.1.13.10 4.2.7.2.686 [id number] [facility] 2022-06-17 11:00:00 2022-06-17 11:00:00 Outpatient R JORGE LOZADA [facility] [id number] [facility] 2022-06-13 10:45:00 2022-06-13 11:12:41 Outpatient P NILAY HADLEY [facility] [id number] [facility] 2022-06-13 10:45:00 2022-06-13 11:12:41 Patient Financial Services Specialist Visit Ultrasound, KatieSusanne LouisNilay roblero Ikuvpamelagiclarke [facility] WIND [employer]UR[employer]INE SERVICE TECHNICIAN [facility] MATERNAL & CHILD [facility] 1.2840.114 350.1.13.10 4.2.7.2.686 [id number] [facility] 2022-06-13 09:00:00 2022-06-13 09:15:00 [facility] 1.2840.114 350.1.13.10 4.2.7.2.686 [id number] 134 [id number] [facility] 2022-05-30 15:15:00 2022-05-30 16:29:30 Routine Visit Jorge Lozada [facility] 1.2840.114 350.1.13.10 4.2.7.2.686 [id number] 134 [id number] [facility] 2022-05-30 11:00:00 2022-05-30 13:02:43 Outpatient P SUSANNE REYNOSO [facility] [id number] [facility] 2022-05-30 11:00:00 2022-05-30 12:00:00 Patient Financial Services Specialist Visit Ultrasound, KatieSusanne Louis [facility] [employer] SERVICE TECHNICIAN [facility] MATERNAL [facility]ILD [facility] 1.2840.114 350.1.13.10 4.2.7.2.686 [id number] [facility] 2022-05-16 11:00:00 2022-05-16 11:24:24 Patient Financial Services Specialist Visit Ultrasound, Susanne Horner [facility] [employer] SERVICE TECHNICIAN [facility] 1..840.114 350.1.13.10 4.2.7.2.686 [id number] [facility] 2022-05-16 11:00:00 2022-05-16 11:00:00 Outpatient P MARYLIN Bailey [facility] [id number] [facility] 2022-05-02 11:00:00 2022-05-02 11:39:50 Patient Financial Services Specialist Visit Ultrasound, Susanne Horner [facility] W[employer] SERVICE TECHNICIAN [facility] & [facility]ILD [facility] .840.114 350.1.13.10 4.2.7.2.686 [id number] [facility] 2022-05-02 11:00:00 2022-05-02 11:00:00 Outpatient P NELLIE JOSEPH NELLIE [facility] [id number] [facility] 2022-04-18 09:00:00 2022-04-18 11:35:28 Routine Visit Jorge Lozada [facility] .84.114 350.1.13.10 4.2.7.2.686 [id number] 134 [id number] [facility] 2022-04-18 10:15:00 2022-04-18 10:34:18 Patient Financial Services Specialist Visit Ultrasound, Susanne Horner [facility] W[employer]UR[employer] SERVICE TECHNICIAN [facility] & [facility]ILD [facility] 1.840.114 350.1.13.10 4.2.7.2.686 [id number] [facility] 2022-04-18 10:15:00 2022-04-18 10:34:18 Outpatient P SUSANNE REYONSO [facility] [id number] [facility] 2022-04-18 00:00:00 2022-04-18 00:00:00 Case Management Jieangelo [facility] 1.2840.114 350.1.13.10 4.2.7.2.686 [id number] 134 [id number] [facility] 2022-04-13 00:00:00 2022-04-13 00:00:00 Orders Only Doctor Unassigned, [place] [facility] 1.2.840.114 350.1.13.10 4.2.7.2.686 [id number] [facility] 2022-04-12 14:08:00 2022-04-12 15:20:00 Emergency Jorge Lozada [facility] 1.2840.114 350.1.13.10 4.2.7.2.686 [id number] [id number] [facility] 2022-04-12 14:08:00 2022-04-12 15:20:00 Outpatient X JORGE LOZADA [facility] [id number] [facility] 2022-04-12 00:00:00 2022-04-12 00:00:00 Telephone Loree [facility] 1.2840.114 350.1.13.10 4.2.7.2.686 [id number] 134 [id number] [facility] 2022-04-12 00:00:00 2022-04-12 00:00:00 Orders Only Doctor Unassigned, [place] [facility] 1.2840.114 350.1.13.10 4.2.7.2.686 [id number] [facility] 2022-04-05 10:45:00 2022-04-05 11:23:25 Routine Visit Thomas Flowers [facility] 1.840.114 350.1.13.10 4.2.7.2.686 [id number] 134 [id number] [facility] 2022-04-05 10:45:00 2022-04-05 11:23:25 Outpatient R THOMAS FLOWERS [facility] [id number] [facility] 2022-04-04 10:45:00 2022-04-04 12:43:19 Patient Financial Services Specialist Visit Ultrasound, Ang-Susanne Louis [facility] W[employer] SERVICE TECHNICIAN [facility] MATERNAL & CHILD [facility] 1.840.114 350.1.13.10 4.2.7.2.686 [id number] [facility] 2022-04-04 10:45:00 2022-04-04 10:45:00 Outpatient P SUSANNE REYNOSO [facility] [id number] [facility] 2022-04-04 00:00:00 2022-04-04 00:00:00 Case Management Thomas Flowers [facility] 1.840.114 350.1.13.10 4.2.7.2.686 [id number] [facility] 2022-03-15 14:15:00 2022-03-15 15:46:03 Patient Financial Services Specialist Visit 1, [facility] Jake Nellie [facility] W[employer]UR[employer] SERVICE TECHNICIAN [facility] MATERNAL & CHILD [facility] 1..840.114 350.1.13.10 4.2.7.2.686 [id number] [facility] 2022-03-15 14:15:00 2022-03-15 14:15:00 Outpatient P [facility] [id number] [facility] 2022-03-15 00:00:00 2022-03-15 00:00:00 Orders Only Doctor Unassigned, [place] [facility] 1.2.840.114 350.1.13.10 4.2.7.2.686 [id number] [facility] 2022-03-11 09:30:00 2022-03-11 09:30:00 Outpatient R [facility] [id number] [facility] 2022-03-09 21:12:00 2022-03-10 01:09:00 Emergency E VANGIE [facility] [address] [facility] 2022-03-07 14:30:00 2022-03-07 15:09:16 Initial Visit Thomas Flowers [facility] 1..840.114 350.1.13.10 4.2.7.2.686 [id number] 134 [id number] [facility] 2022-03-07 14:30:00 2022-03-07 15:09:16 Outpatient R THOMAS FLOWERS CHERYAL [facility] [id number] [facility] 2022-02-18 14:30:50 2022-02-18 14:30:50 Outpatient [facility] [id number] Eddie Hammond Jaswant Results Test Description Test Time Test Comments Results Result Co mments Source [facility] [id number] 19:03:00 * Test Item Value Reference Range Interpretation Comme nts Rubella screen IgG (test code = 9566551883) Positive Negative COLEEN (test code = COLEEN) Positive - Indicat es the patient was exposed to Rubella through infection or vaccination.Negative - Indicates the patient could be susceptible to Rubella infection.Equivocal - A second specimen should be sent. [facility] [place] [id number] 16:52:59* Test Item Value Reference Range Interpretation Comme nts Syphilis IgG/IgM (test code = 37214-9) Non-reactive Non-reactive COLEEN (test code = COLEEN) Non-reactive - No serologic evidence of T. pallidum infection. Cannot exclude incubating or early syphilis. Submit a second specimen in 2-4 weeks if syphilis is clinically suspected. Equivocal - Further testing to follow. Reactive - Further testing to follow. Lab Interpretation (test code = 62197-4) Normal [facility] ONLY - SYPHILIS [id number] 16:52:59* Test Item Value Reference Range Interpretation Comme nts Syphilis IgG/IgM (test code = 17191-2) Non-reactive Non-reactive COLEEN (test code = COLEEN) Non-reactive - No serologic evidence of T. pallidum infection. Cannot exclude incubating or early syphilis. Submit a second specimen in 2-4 weeks if syphilis is clinically suspected. Equivocal - Further testing to follow. Reactive - Further testing to follow. Lab Interpretation (test code = 26461-9) Normal [facility] (D) IMMUNE [id number] 22:03:58* Test Item Value Reference Range Interpretation Comme nts RHIG CANDIDATE? (test code = 5188) No- see comment Patient is not a candidate for RhIg- Patient is Rh Positive.Performed at [facility] Laboratory Services - [facility] Blood [address] Free: [phone] No. [id number] [facility] (D) IMMUNE [id number] 22:03:58* Test Item Value Reference Range Interpretation Comme nts RHIG CANDIDATE? (test code = 5188) No- see comment Patient is not a candidate for RhIg- Patient is Rh Positive.Performed at [facility] Laboratory Services - [facility] Blood [address] Free: [phone] No. [id number] [facility]ORD [id number] 18:08:11* Test Item Value Reference Range Interpretation Comme nts BASE EXCESS, CORD (test code = 0387866373) -1.7 mEq/L AC PH, CORD (BEAKER) (test code = 9705564385) 7.28 7.18-7.38 PC02, CORD (test code = 8553620102) 57 See_Comment [Automated messa ge] The system which generated this result transmitted reference range: 32 - 66 mmHg. The reference range was not used to interpret this result as normal/abnormal. PO2, CORD (test code = 1414186029) 20 See_Comment [Automated messa ge] The system which generated this result transmitted reference range: 10 - 30 mmHg. The reference range was not used to interpret this result as normal/abnormal. BICARBONATE, CORD (test code = 1313732462) 26 See_Comment [Automated messa ge] The system which generated this result transmitted reference range: 17 - 27 mEq/L. The reference range was not used to interpret this result as normal/abnormal. [facility] CORD [id number] 18:08:11* Test Item Value Reference Range Interpretation Comme nts BASE EXCESS, CORD (test code = 5623394618) -1.7 mEq/L AC PH, CORD (BEAKER) (test code = 8012017239) 7.28 7.18-7.38 PC02, CORD (test code = 8688596036) 57 See_Comment [Automated messa ge] The system which generated this result transmitted reference range: 32 - 66 mmHg. The reference range was not used to interpret this result as normal/abnormal. PO2, CORD (test code = 9648726942) 20 See_Comment [Automated messa ge] The system which generated this result transmitted reference range: 10 - 30 mmHg. The reference range was not used to interpret this result as normal/abnormal. BICARBONATE, CORD (test code = 0760718667) 26 See_Comment [Automated messa ge] The system which generated this result transmitted reference range: 17 - 27 mEq/L. The reference range was not used to interpret this result as normal/abnormal. [facility] Cord [id number] 18:03:46* Test Item Value Reference Range Interpretation Comme nts BASE EXCESS, CORD (test code = 7214449393) -1.0 mEq/L AC PH, CORD (BEAKER) (test code = 5575309340) 7.26 7.18-7.38 PC02, CORD (test code = 5191263474) 62 See_Comment [Automated messa ge] The system which generated this result transmitted reference range: 32 - 66 mmHg. The reference range was not used to interpret this result as normal/abnormal. PO2, CORD (test code = 1889878159) 11 See_Comment [Automated messa ge] The system which generated this result transmitted reference range: 10 - 30 mmHg. The reference range was not used to interpret this result as normal/abnormal. BICARBONATE, CORD (test code = 5952776821) 28 See_Comment H [Automated me ssage] The system which generated this result transmitted reference range: 17 - 27 mEq/L. The reference range was not used to interpret this result as normal/abnormal. Lab Interpretation (test code = 76526-8) Abnormal [facility] [id number] 18:03:46* Test Item Value Reference Range Interpretation Comme nts BASE EXCESS, CORD (test code = 8036392055) -1.0 mEq/L AC PH, CORD (BEAKER) (test code = 1858636642) 7.26 7.18-7.38 PC02, CORD (test code = 5324552131) 62 See_Comment [Automated messa ge] The system which generated this result transmitted reference range: 32 - 66 mmHg. The reference range was not used to interpret this result as normal/abnormal. PO2, CORD (test code = 5724086655) 11 See_Comment [Automated messa ge] The system which generated this result transmitted reference range: 10 - 30 mmHg. The reference range was not used to interpret this result as normal/abnormal. BICARBONATE, CORD (test code = 0989192807) 28 See_Comment H [Automated me ssage] The system which generated this result transmitted reference range: 17 - 27 mEq/L. The reference range was not used to interpret this result as normal/abnormal. Lab Interpretation (test code = 44148-9) [facility]normal [facility] [id number] 18:00:20* Test Item Value Reference Range Interpretation Comme nts VENOUS BASE EXCESS, CORD (test code = 8358031160) -1.1 mEq/L VENOUS PH, CORD (test code = 2981964816) 7.36 7.25-7.45 VENOUS PC02, CORD (test code = 7902829208) 45 See_Comment [Automated messa ge] The system which generated this result transmitted reference range: 27 - 49 mmHg. The reference range was not used to interpret this result as normal/abnormal. VENOUS PO2, CORD (test code = 1515051115) 30 See_Comment [Automated me ssage] The system which generated this result transmitted reference range: 17 - 41 mmHg. The reference range was not used to interpret this result as normal/abnormal. VENOUS BICARBONATE, CORD (test code = 3889106063) 25 See_Comment [Automated messa ge] The system which generated this result transmitted reference range: 12 - 29 mEq/L. The reference range was not used to interpret this result as normal/abnormal. [facility] CORD [id number] 18:00:20* Test Item Value Reference Range Interpretation Comme nts VENOUS BASE EXCESS, CORD (test code = 1516365756) -1.1 mEq/L VENOUS PH, CORD (test code = 6592221453) 7.36 7.25-7.45 VENOUS PC02, CORD (test code = 7769985317) 45 See_Comment [Automated messa ge] The system which generated this result transmitted reference range: 27 - 49 mmHg. The reference range was not used to interpret this result as normal/abnormal. VENOUS PO2, CORD (test code = 6194643046) 30 See_Comment [Automated me ssage] The system which generated this result transmitted reference range: 17 - 41 mmHg. The reference range was not used to interpret this result as normal/abnormal. VENOUS BICARBONATE, CORD (test code = 6988195045) 25 See_Comment [Automated messa ge] The system which generated this result transmitted reference range: 12 - 29 mEq/L. The reference range was not used to interpret this result as normal/abnormal. [facility] Cord [id number] 17:56:01* Test Item Value Reference Range Interpretation Comme nts VENOUS BASE EXCESS, CORD (test code = 4977524575) -1.1 mEq/L VENOUS PH, CORD (test code = 8667488089) 7.32 7.25-7.45 VENOUS PC02, CORD (test code = 8277708913) 51 See_Comment H [Automated me ssage] The system which generated this result transmitted reference range: 27 - 49 mmHg. The reference range was not used to interpret this result as normal/abnormal. VENOUS PO2, CORD (test code = 9724897596) 18 See_Comment [Automated me ssage] The system which generated this result transmitted reference range: 17 - 41 mmHg. The reference range was not used to interpret this result as normal/abnormal. VENOUS BICARBONATE, CORD (test code = 8110760614) 26 See_Comment [Automa jose roberto message] The system which generated this result transmitted reference range: 12 - 29 mEq/L. The reference range was not used to interpret this result as normal/abnormal. Lab Interpretation (test code = 54669-5) [facility]normal [facility] Cord [id number] 17:56:01* Test Item Value Reference Range Interpretation Comme nts VENOUS BASE EXCESS, CORD (test code = 5098347353) -1.1 mEq/L VENOUS PH, CORD (test code = 8470690073) 7.32 7.25-7.45 VENOUS PC02, CORD (test code = 0633481007) 51 See_Comment H [Automated me ssage] The system which generated this result transmitted reference range: 27 - 49 mmHg. The reference range was not used to interpret this result as normal/abnormal. VENOUS PO2, CORD (test code = 0371985502) 18 See_Comment [Automated me ssage] The system which generated this result transmitted reference range: 17 - 41 mmHg. The reference range was not used to interpret this result as normal/abnormal. VENOUS BICARBONATE, CORD (test code = 7315645802) 26 See_Comment [Automa jose roberto message] The system which generated this result transmitted reference range: 12 - 29 mEq/L. The reference range was not used to interpret this result as normal/abnormal. Lab Interpretation (test code = 61868-9) Abnormal [facility] 1/2 AG-AB WITH [id number] 16:44:03* Test Item Value Reference Range Interpretation Comme [facility] HIV Semi-quantitative (test code = 64809-8) 0.33 Negative COLEEN (test code = COLEEN) Non-reactive for HIV-1 antigen and HIV-1/HIV-2 antibodies. ?No laboratory evidence of HIV infection. ?Repeat in 2-4 weeks if acute HIV infection is suspected. [facility] 1/2 AG-AB WITH [id number] 16:44:03* Test Item Value Reference Range Interpretation Comme [facility] HIV Semi-quantitative (test code = 67817-5) 0.33 Negative COLEEN (test code = COLEEN) Non-reactive for HIV-1 antigen and HIV-1/HIV-2 antibodies. ?No laboratory evidence of HIV infection. ?Repeat in 2-4 weeks if acute HIV infection is suspected. [facility] B Surface [id number] 15:18:37 * Test Item Value Reference Range Interpretation Comme nts HBsAg Semi-Quantitative ([place] t code = 5195-3) 0.04 Negative [facility] Surface [id number] 15:18:37 * Test Item Value Reference Range Interpretation Comme nts HBsAg Semi-Quantitative ([place] t code = 5195-3) 0.04 Negative [facility] Only)2022-07-01 14:51:00* Test Item Value Reference Range Interpretation Comme nts ABO & RH (test code = 20) A Positive [facility] Confirmation (Lab Only)2022-07-01 14:51:00* Test Item Value Reference Range Interpretation Comme nts ABO & RH (test code = 20) A [facility] [id number] 14:19:47* Test Item Value Reference Range Interpretation Comme nts WBC (test code = 6690-2) 8.30 See_Comment [Automated messa ge] The system which generated this result transmitted reference range: 4.30 - 11.10 10*3/?L. The reference range was not used to interpret this result as normal/abnormal. RBC (test code = 789-8) 3.26 See_Comment L [Automated messa ge] The system which generated this result transmitted reference range: 3.93 - 5.25 10*6/?L. The reference range was not used to interpret this result as normal/abnormal. HGB (test code = 718-7) 7.9 g/dL 11.6-15.0 L HCT (test code = 4544-3) 25.6 % 35.7-45.2 L MCV (test code = 787-2) 78.5 fL 80.6-95.5 L MCH (test code = 785-6) 24.2 pg 25.9-32.8 L MCHC (test code = 786-4) 30.9 g/dL 31.6-35.1 L RDW-SD (test code = 78241-8) 41.1 fL 39.0-49.9 RDW-CV (test code = 788-0) 14.6 % 12.0-15.5 PLT (test code = 777-3) 179 See_Comment [Automated Dwllra ge] The system which generated this result transmitted reference range: 166 - 358 10*3/?L. The reference range was not used to interpret this result as normal/abnormal. MPV (test code = 43594-9) 12.2 fL 9.5-12.9 NRBC/100 WBC (test code = 9862121877) 0.8 See_Comment [Automated [employer] ssage] The system which generated this result transmitted reference range: 0.0 - 10.0 /100 WBCs. The reference range was not used to interpret this result as normal/abnormal. NRBC x10^3 (test code = 9905138618) 0.07 See_Comment [Automated Dwllra ge] The system which generated this result transmitted reference range: 10*3/?L. The reference range was not used to interpret this result as normal/abnormal. GRAN MAT (NEUT) % (test code = 770-8) 64.3 % IMM GRAN % (test code = 4399225767) 1.70 % LYMPH % (test code = 736-9) 22.3 % MONO % (test code = 5905-5) 11.0 % EOS % (test code = 713-8) 0.2 % BASO % (test code = 706-2) 0.5 % GRAN MAT x10^3(ANC) (test code = 7339758009) 5.34 10*3/uL 1.88-7.09 IMM GRAN x10^3 (test code = 5088843155) 0.14 10*3/uL 0.00-0.06 H LYMPH x10^3 (test code = 731-0) 1.85 10*3/uL 1.32-3.29 MONO x10^3 (test code = 742-7) 0.91 10*3/uL 0.33-0.92 EOS x10^3 (test code = 711-2) 0.03-0.39 L BASO x10^3 (test code = 704-7) 0.04 10*3/uL 0.01-0.07 Lab Interpretation (test code = 46797-5) Abnormal [facility] with [id number] 14:19:47* Test Item Value Reference Range Interpretation Comme nts WBC (test code = 6690-2) 8.30 See_Comment [Automated messa ge] The system which generated this result transmitted reference range: 4.30 - 11.10 10*3/?L. The reference range was not used to interpret this result as normal/abnormal. RBC (test code = 789-8) 3.26 See_Comment L [Automated messa ge] The system which generated this result transmitted reference range: 3.93 - 5.25 10*6/?L. The reference range was not used to interpret this result as normal/abnormal. HGB (test code = 718-7) 7.9 g/dL 11.6-15.0 L HCT (test code = 4544-3) 25.6 % 35.7-45.2 L MCV (test code = 787-2) 78.5 fL 80.6-95.5 L MCH (test code = 785-6) 24.2 pg 25.9-32.8 L MCHC (test code = 786-4) 30.9 g/dL 31.6-35.1 L RDW-SD (test code = 86107-1) 41.1 fL 39.0-49.9 RDW-CV (test code = 788-0) 14.6 % 12.0-15.5 PLT (test code = 777-3) 179 See_Comment [Automated messa ge] The system which generated this result transmitted reference range: 166 - 358 10*3/?L. The reference range was not used to interpret this result as normal/abnormal. MPV (test code = 51607-7) 12.2 fL 9.5-12.9 NRBC/100 WBC (test code = 4991947867) 0.8 See_Comment [Automated [employer] ssage] The system which generated this result transmitted reference range: 0.0 - 10.0 /100 WBCs. The reference range was not used to interpret this result as normal/abnormal. NRBC x10^3 (test code = 8331876607) 0.07 See_Comment [Automated messa ge] The system which generated this result transmitted reference range: 10*3/?L. The reference range was not used to interpret this result as normal/abnormal. GRAN MAT (NEUT) % (test code = 770-8) 64.3 % IMM GRAN % (test code = 9980629846) 1.70 % LYMPH % (test code = 736-9) 22.3 % MONO % (test code = 5905-5) 11.0 % EOS % (test code = 713-8) 0.2 % BASO % (test code = 706-2) 0.5 % GRAN MAT x10^3(ANC) (test code = 0075980610) 5.34 10*3/uL 1.88-7.09 IMM GRAN x10^3 (test code = 9098245333) 0.14 10*3/uL 0.00-0.06 H LYMPH x10^3 (test code = 731-0) 1.85 10*3/uL 1.32-3.29 MONO x10^3 (test code = 742-7) 0.91 10*3/uL 0.33-0.92 EOS x10^3 (test code = 711-2) 0.03-0.39 L BASO x10^3 (test code = 704-7) 0.04 10*3/uL 0.01-0.07 Lab Interpretation (test code = 43603-8) [facility] [id number] 14:17:00 * Test Item Value Reference Range Interpretation Comme nts ABO & RH (test code = 20) A POSITIVE IAT (test code = 1185) [facility] [id number] 14:17:00 * Test Item Value Reference Range Interpretation Comme nts ABO & RH (test code = 20) A POSITIVE IAT (test code = 1185) Negative [facility] GLUCOSE (AUTOMATED)2022-07-01 13:24:17* Test Item Value Reference Range Interpretation Comme nts POCT GLU (test code = 8693458568) 90 mg/dL 70-110 Lab Interpretation (test cod e = 55574-5) Normal [facility] GLUCOSE (AUTOMATED)2022-07-01 13:24:17* Test Item Value Reference Range Interpretation Comme nts POCT GLU (test code = 8785414153) 90 mg/dL 70-110 Lab Interpretation (test cod e = 49939-1) Normal [facility] URINALYSIS W/O SPECIFIC [id number] 14:44:00* Test Item Value Reference Range Interpretation Comme nts POCT PH U (test code = 3254) n/a 5-8 POCT U LEUK EST (test code = 3263) n/a Negative - Negative POCT U NIT (test code = 3262) n/a Negative - Negati ve POCT U PROT (test code = 3259) Negative Negative - Negat oumar POCT U GLU (test code = 3256) Normal Negative - Negati ve POCT U KETONE (test code = 3258) n/a Negative - Neg ative POCT U BLD (test code = 3257) n/a Negative - Negati ve [facility] URINALYSIS W/O SPECIFIC [id number] 21:12:00* Test Item Value Reference Range Interpretation Comme nts POCT PH U (test code = 3254) n/a 5-8 POCT U LEUK EST (test code = 3263) n/a Negative - Negative POCT U NIT (test code = 3262) n/a Negative POCT U PROT (test code = 3259) negative Negative - Negat oumar POCT U GLU (test code = 3256) negative Negative - Negati ve POCT U KETONE (test code = 3258) n/a Negative - Neg ative POCT U BLD (test code = 3257) n/a Negative - Negati ve [facility] URINALYSIS W/O SPECIFIC [id number] 15:13:00* Test Item Value Reference Range Interpretation Comme nts POCT PH U (test code = 3254) n/a 5-8 POCT U LEUK EST (test code = 3263) n/a Negative - N egative POCT U NIT (test code = 3262) n/a Negative - Negati ve POCT U PROT (test code = 3259) Trace Negative - Negat oumar POCT U GLU (test code = 3256) Normal Negative - Negati ve POCT U KETONE (test code = 3258) n/a Negative - Neg ative POCT U BLD (test code = 3257) n/a Negative - Negati ve [facility] SPECIFIC [id number] 18:02:00* Test Item Value Reference Range Interpretation Comme nts POCT PH U (test code = 3254) N/A 5-8 POCT U LEUK EST (test code = 3263) N/A Negative - Negative POCT U NIT (test code = 3262) N/A Negative - Negati ve POCT U PROT (test code = 3259) Negative Negative - Negat oumar POCT U GLU (test code = 3256) Negative Negative - Negati ve POCT U KETONE (test code = 3258) N/A Negative - Neg ative POCT U BLD (test code = 3257) N/A Negative - Negati ve [facility] W/O SPECIFIC [id number] 22:24:00* Test Item Value Reference Range Interpretation Comme nts POCT PH U (test code = 3254) n/a 5-8 POCT U LEUK EST (test code = 3263) n/a Negative - Negative POCT U NIT (test code = 3262) n/a Negative - Negati ve POCT U PROT (test code = 3259) negative Negative - Negat oumar POCT U GLU (test code = 3256) negative Negative - Negati ve POCT U KETONE (test code = 3258) n/a Negative - Neg ative POCT U BLD (test code = 3257) n/a Negative - Negati ve [facility] [id number] 22:23:00* Test Item Value Reference Range Interpretation Comme nts POCT PREG (test code = 1605) Positive On board controls acceptable with C Line (test code = 3574) Yes POCT PREG LOT # (test code = 3575) POCT PREG TEST DATE ( test code = 3576) [facility]
--- NOTE | 2023-08-02 14:29 | EDPHYS ---
Physician Documentation [facility] Name: Lacey Shaikh Age: 32 yrs Sex: Female : 1990 Arrival Date: 08/02/2023 Time: 13:41 Bed 17 Private MD: ED Physician Yvan Jennings HPI: 08/01 14:51 This 32 yrs old Female presents to ER via Ambulatory with complaints of Fall rt Injury - Preg 25 wks. 14:51 Patient is 25 weeks . Patient states that she had a mechanical fall today, rt landed on her buttocks. Patient states that she did not feel movement for about 2 hours prompting her come to the ED for further evaluation. After patient arrived into the exam room, stated that she did feel baby kick again. Denies other acute complaints at this time including vaginal bleeding, leakage of fluid. Symptoms are mild in severity, no other aggravating or alleviating factors. Patient denies significant pain at this time, did not hit her head.. OCC THERAPIST: 14:09 4, Living 4, Verified nj1 Historical: - Allergies: 14:02 No Known Allergies; hb - Home Meds: 14:02 None [Active]; hb - PMHx: 14:02 None; hb - PSHx: 14:02 section; D\T\C; hb - Immunization history:: Adult Immunizations up to date. - Infectious Disease History:: Denies. - Social history:: Smoking status: Patient denies any tobacco usage or history of. - Family history:: not pertinent. ROS: 14:51 Constitutional: Negative for fever, chills, and weight loss, Cardiovascular: Negative rt for chest pain, palpitations, and edema, Respiratory: Negative for shortness of breath, cough, wheezing, and pleuritic chest pain, Abdomen/GI: Negative for abdominal pain, nausea, vomiting, diarrhea, and constipation, Back: Negative for injury and pain, : Negative for injury, bleeding, discharge, and swelling, Exam: 14:51 Constitutional: This is a well developed, well nourished patient who is awake, alert, rt and in no acute distress. Head/Face: Normocephalic, atraumatic. Chest/axilla: Normal chest wall appearance and motion. Nontender with no deformity. No lesions are appreciated. Cardiovascular: Regular rate and rhythm with a normal S1 and S2. No gallops, murmurs, or rubs. Normal PMI, no JVD. No pulse deficits. Respiratory: Lungs have equal breath sounds bilaterally, clear to auscultation and percussion. No rales, rhonchi or wheezes noted. No increased work of breathing, no retractions or nasal flaring. Skin: Warm, dry with normal turgor. Normal color with no rashes, no lesions, and no evidence of cellulitis. MS/ Extremity: Pulses equal, no cyanosis. Neurovascular intact. Full, normal range of motion. Neuro: Awake and alert, GCS 15, oriented to person, place, time, and situation. Cranial nerves II-XII grossly intact. Motor strength 5/5 in all extremities. Sensory grossly intact. Cerebellar exam normal. Normal gait. 14:51 Abdomen/GI: Gravid uterus, no tenderness, Vital Signs: 13:57 BP 104 / 53; Pulse 81; Resp 18; Temp 97.7(TE); Pulse Ox 98% on R/A; Weight 65.77 kg; hb Height 5 ft. 4 in. ; Pain 0/10; 14:30 BP 104 / 59; Pulse 83; Resp 18; Pulse Ox 99% ; nj1 13:57 Body Mass Index 24.89 (65.77 kg, 162.56 cm) hb 13:57 Pain Scale: Adult hb Procedures: 14:51 Ultrasound: Type: OB, performed by the emergency department physician, Good rt movement noted, amniotic fluid appears to be appropriate, heart rate is appropriate.. MDM: 14:01 Patient medically screened. rt 14:51 Differential diagnosis: Mechanical fall, demise. Data reviewed: vital signs, rt nurses notes. Independent interpretation of the following test(s) in the Emergency Department Point of Care Ultrasound performed by Emergency Department Team, please see interpretation in the Ultrasound procedure note. 14:51 Counseling: I had a detailed discussion with the patient and/or guardian regarding the rt historical points, exam findings, and any diagnostic results supporting the discharge/admit diagnosis, the need for outpatient follow up, to return to the emergency department if symptoms worsen or persist or if there are any questions or concerns that arise at home. Administered Medications: No medications were administered Disposition Summary: 08/02/23 14:28 Discharge Ordered Notes: Location: Home rt Problem: new rt Symptoms: have improved rt Condition: Stable rt Diagnosis - Mechanical fall rt Followup: rt - With: Private Physician - When: 5 - 6 days - Reason: Discharge Instructions: - Discharge Summary Sheet rt - Fall Prevention in the Home, Adult rt - Second Trimester of rt Forms: - Medication Reconciliation Form rt - Antibiotic Education rt - Prescription Opioid Use rt - Patient Portal Instructions rt - Leadership Thank You Letter rt Signatures: Anitha Ramirez RN RN Yvan Borjas MD MD rt
--- NOTE | 2023-08-02 14:29 | ER ---
Nurse's Notes [facility] Name: Lacey Shaikh Age: 32 yrs Sex: Female : 1990 Arrival Date: 08/02/2023 Time: 13:41 Bed 17 Private MD: Diagnosis: Mechanical fall Presentation: 08/01 13:57 Chief complaint: Slipped and fell onto buttocks approx 2 hours ago, has not felt baby hb move since fall. Denies cramping/vaginal bleeding/increased discharge. ADDISON 11/13, . Coronavirus screen: At this time, the client does not indicate any symptoms associated with coronavirus-19. Ebola Screen: No symptoms or risks identified at this time. Initial Sepsis Screen: Does the patient meet any 2 criteria? No. Patient's initial sepsis screen is negative. Does the patient have a suspected source of infection? No. Patient's initial sepsis screen is negative. Risk Assessment: Do you want to hurt yourself or someone else? Patient reports no desire to harm self or others. Onset of symptoms was August 02, 2023. 13:57 Method Of Arrival: Ambulatory hb 13:57 Acuity: MACHELLE [address] JUDGE: 14:09 4, Living 4, Verified nj1 Historical: - Allergies: 14:02 No Known Allergies; hb - Home Meds: 14:02 None [Active]; hb - PMHx: 14:02 None; hb - PSHx: 14:02 section; D\T\C; hb - Immunization history:: Adult Immunizations up to date. - Infectious Disease History:: Denies. - Social history:: Smoking status: Patient denies any tobacco usage or history of. - Family history:: not pertinent. Screenin:08 [facility] ED Fall Risk Assessment (Adult) History of falling in the last 3 months, nj1 including since admission Yes- single mechanical fall (1 pt) Confusion or Disorientation No (0 pts) Intoxicated or Sedated No (0 pts) Impaired Gait No (0 pts) Mobility Assist Device Used No (0 pt) Altered Elimination No (0 pt) Score/Fall Risk Level 0 - 2 = Low Risk Oriented to surroundings, Maintained a safe environment, Hourly rounding (assess needs \T\ fall precautionary measures) done. Abuse screen: Denies threats or abuse. Denies injuries from another. Nutritional screening: No deficits noted. Tuberculosis screening: No symptoms or risk factors identified. Assessment: 14:05 General: Appears in no apparent distress. comfortable, Behavior is calm, cooperative, nj1 appropriate for age. Pain: Denies pain. Neuro: Level of Consciousness is awake, alert, obeys commands, Oriented to person, place, time, situation. Cardiovascular: Patient's skin is warm and dry. Respiratory: Airway is patent Respiratory effort is even, unlabored. GI: Patient currently denies abdominal pain. : Denies vaginal bleeding. 14:35 Reassessment: Patient appears in no apparent distress at this time. Patient is alert, nj1 oriented x 3, equal unlabored respirations, skin warm/dry/pink. Vital Signs: 13:57 BP 104 / 53; Pulse 81; Resp 18; Temp 97.7(TE); Pulse Ox 98% on R/A; Weight 65.77 kg; hb Height 5 ft. 4 in. ; Pain 0/10; 14:30 BP 104 / 59; Pulse 83; Resp 18; Pulse Ox 99% ; nj1 13:57 Body Mass Index 24.89 (65.77 kg, 162.56 cm) hb 13:57 Pain Scale: Adult hb Vitals: 14:05 Heart Tones 136. nj1 ED Course: 13:46 Patient arrived in ED. mg5 13:52 Shelley Meade, RN is Primary Nurse. nj1 14:00 Triage completed. hb 14:01 Yvan Jennings MD is Attending Physician. rt 14:05 Arm band placed on. hb 14:09 Patient has correct armband on for positive identification. Bed in low position. Call nj1 light in reach. Provided Education on: call light, fall precautions. 14:35 No provider procedures requiring assistance completed. Patient did not have IV access nj1 during this emergency room visit. Administered Medications: No medications were administered Medication: 14:35 VIS not applicable for this client. nj1 Outcome: 14:28 Discharge ordered by . rt 14:35 Discharged to home ambulatory, nj1 14:35 Condition: stable 14:35 Discharge instructions given to patient, Instructed on discharge instructions, follow up and referral plans. safety practices, Demonstrated understanding of instructions, follow-up care, 14:41 Patient left the ED. nj1 Signatures: Anitha Ramirez RN RN hb Yvan Jennings MD MD rt Shelley Meade RN RN nj1 [facility]5
[2023-08-02 15:42] VITALS: BP 104/53; TEMP 97.7; O2SAT 98
== END 2023-08-02 14:41 | disposition home or self-care (01) ==
LOC: ER 13:41
DX: O26.892 Other specified pregnancy related conditions, second trimester (principal); Z3A.25 25 weeks gestation of pregnancy; W18.30XA Fall on same level, unspecified, initial encounter
CPT/HCPCS: 99283

== ENCOUNTER 2023-09-21 03:06 | Emergency (ER) | payer OTHER, SELFPAY ==
[2023-09-21] MEDS ORDERED: ONDANSETRON 4 MG/2 ML VIAL ONE (03:33)
[2023-09-21] MEDS ORDERED: MAGNES/ALUMIN/SIMET 30ML UCUP ONE (03:34)
--- NOTE | 2023-09-21 04:05 | EDPHYS ---
Physician Documentation [facility] Name: Lacey Shaikh Age: 32 yrs Sex: Female : 1990 Arrival Date: 09/21/2023 Time: 03:06 Bed 4 Private MD: ED Physician Torito Paez HPI: 09/20 03:55 This 32 yrs old Female presents to ER via EMS with complaints of Nausea. bo1 03:55 Onset: The symptoms/episode began/occurred suddenly, \\T\\ 2am after sleeping. Pt had bo1 consumed some "soda" along with pork chop. Awoke with a burp and burning sensation.. Possible causes: Soda. Associated signs and symptoms: Pertinent positives: nausea, vomiting, "heartburn". movement \\T\\ EMS. 03:58 Pt is in her 4th pregancy, (hx of twins) Due date in Nov. Currently \\T\\ 32 weeks.. 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 - Infectious Disease History:: Denies. - Social history:: Smoking status: Patient denies any tobacco usage or history of. Patient/guardian denies using alcohol, street drugs. ROS: 03:59 Constitutional: Negative for fever, chills, and weight loss, bo1 03:59 Cardiovascular: Negative for chest pain, 03:59 Respiratory: Negative for cough, shortness of breath, 03:59 Abdomen/GI: Positive for nausea and vomiting, "heartburn", 03:59 : Negative for burning with urination, vaginal discharge, Vaginal leakage, Exam: 04:00 Constitutional: This is a well developed, well nourished patient who is awake, alert, bo1 and in no acute distress. 04:00 Abdomen/GI: Palpation: Gravid, fundus \\T\\ umbilicus and xiphoid process. Non-irritable. Bedside U/S shows shetty and heart activity. Pt is reassured of movement and seeing the fetus. Biophysical data and measurements not obtained., 04:00 Back: CVA tenderness, is absent, 04:00 Skin: no rash present. Warm and dry. Vital Signs: 03:20 BP 108 / 67; Pulse 67; Resp 19; Temp 97.8; Pulse Ox 99% ; Weight 70.31 kg; Height 5 ft. bm8 4 in. ; Pain 1/10; 04:13 BP 106 / 50; Pulse 63; Resp 17 S; Pulse Ox 99% on R/A; ha1 03:20 Body Mass Index 26.61 (70.31 kg, 162.56 cm) bm8 03:20 Pain Scale: Adult bm8 Tillman Coma Score: 03:25 Eye Response: spontaneous(4). Motor Response: obeys commands(6). Verbal Response: bm8 oriented(5). Total: 15. MDM: 03:30 Patient medically screened. bo1 04:06 Differential diagnosis: gastritis. Data reviewed: vital signs, Bedside U/S being done bo1 by . Administered Medications: 03:38 Drug: Ondansetron IVP 4 mg IVP once; over 2 minutes Route: IVP; Site: left forearm; bm8 04:15 Follow up: Response: No adverse reaction; Marked relief of symptoms ha1 03:38 Drug: Alum-Mag Hydroxide-Simeth PO Suspension (200 mg-200 mg-20 mg/5 mL) 30 ml PO once bm8 Route: PO; 04:14 Follow up: Response: No adverse reaction; Marked relief of symptoms ha1 Disposition Summary: 09/21/23 04:04 Discharge Ordered Notes: Location: Home bo1 Problem: new bo1 Symptoms: are resolved bo1 Condition: Stable bo1 Diagnosis - Nausea with vomiting, unspecified bo1 - 32 weeks gestation of bo1 - Acute gastritis without bleeding bo1 Followup: bo1 - With: Private Physician - When: Upon discharge from the Emergency Department - Reason: Continuance of care Discharge Instructions: - Discharge Summary Sheet bo1 - Heartburn During bo1 - Nausea and Vomiting, Adult, [id number] bo1 Forms: - Medication Reconciliation Form bo1 - Antibiotic Education bo1 - Prescription Opioid Use bo1 - Patient Portal Instructions bo1 - Leadership Thank You Letter bo1 Prescriptions: - ondansetron 8 mg Oral Tablet,disintegrating - take 1 tablet ORAL route every 8 hours; 10 tablet; Refills: 0, Product bo1 Selection Permitted Signatures: Torito Paez MD MD bo1 Thony Simon RN RN bm8 Lexii Corrigan RN ha1 Corrections: (The following items were deleted from the chart) 03:23 03:22 Home Meds: None; bm8 bm8
--- NOTE | 2023-09-21 04:05 | ER ---
Nurse's Notes [facility] Name: Lacey Shaikh Age: 32 yrs Sex: Female : 1990 Arrival Date: 09/21/2023 Time: 03:06 Bed 4 Private MD: Diagnosis: Nausea with vomiting, unspecified;32 weeks gestation of ;Acute gastritis without bleeding Presentation: 09/20 03:20 Chief complaint: Patient states: i was having sever nausea and heart burn, but its all bm8 gone now. EMS gave something that made it go away. Coronavirus screen: At this time, the client does not indicate any symptoms associated with coronavirus-19. Ebola Screen: Patient negative for fever greater than or equal to 101.5 degrees Fahrenheit, and additional compatible Ebola Virus Disease symptoms Patient denies exposure to infectious person. Patient denies travel to an Ebola-affected area in the 21 days before illness onset. No symptoms or risks identified at this time. Initial Sepsis Screen: Does the patient meet any 2 criteria? No. Patient's initial sepsis screen is negative. Does the patient have a suspected source of infection? No. Patient's initial sepsis screen is negative. Risk Assessment: Do you want to hurt yourself or someone else? Patient reports no desire to harm self or others. Onset of symptoms was September 21, 2023 at 02:00. 03:20 Method Of Arrival: EMS: [facility] bm8 03:20 Acuity: MACHELLE 3 bm8 03:24 Care prior to arrival: Medication(s) given: zofran IV IV initiated. 22 GA, in the left bm8 forearm. Triage Assessment: 03:22 General: Appears in no apparent distress. comfortable, Behavior is calm, cooperative, bm8 appropriate for age. Pain: Denies pain. EENT: No signs and/or symptoms were reported regarding the EENT system. Neuro: No deficits noted. Level of Consciousness is awake, alert, obeys commands, Oriented to person, place, time, situation, Appropriate for age. Cardiovascular: Denies chest pain, Capillary refill < 3 seconds Patient's skin is warm and dry. Respiratory: Airway is patent Respiratory effort is even, unlabored, Respiratory pattern is regular, symmetrical. GI: Reports that symptoms have resolved. : No signs and/or symptoms were reported regarding the genitourinary system. Derm: No signs and/or symptoms reported regarding the dermatologic system. Musculoskeletal: No signs and/or symptoms reported regarding the musculoskeletal system. 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 - Infectious Disease History:: Denies. - Social history:: Smoking status: Patient denies any tobacco usage or history of. Patient/guardian denies using alcohol, street drugs. Screenin:25 [facility] ED Fall Risk Assessment (Adult) History of falling in the last 3 months, bm8 including since admission No falls in past 3 months (0 pts) Confusion or Disorientation No (0 pts) Intoxicated or Sedated No (0 pts) Impaired Gait No (0 pts) Mobility Assist Device Used No (0 pt) Altered Elimination No (0 pt) Score/Fall Risk Level 0 - 2 = Low Risk Oriented to surroundings, Maintained a safe environment, Educated pt \T\ family on fall prevention, incl call for assistance when getting out of bed, Assessed \T\ reinforced patient's understanding of fall precautions, Hourly rounding (assess needs \T\ fall precautionary measures) done, Used ambulatory aids as needed (educated on \T\ assisted with), Used gait belt as appropriate. Abuse screen: Denies threats or abuse. Nutritional screening: No deficits noted. Tuberculosis screening: No symptoms or risk factors identified. Assessment: 03:25 Reassessment: see triage note. bm8 04:13 Reassessment: Patient and/or family updated on plan of care and expected duration. Pain ha1 level reassessed. Patient is alert, oriented x 3, equal unlabored respirations, skin warm/dry/pink. Patient denies pain at this time. Patient states feeling better. Patient states symptoms have improved. Vital Signs: 03:20 BP 108 / 67; Pulse 67; Resp 19; Temp 97.8; Pulse Ox 99% ; Weight 70.31 kg; Height 5 ft. bm8 4 in. ; Pain 1/10; 04:13 BP 106 / 50; Pulse 63; Resp 17 S; Pulse Ox 99% on R/A; ha1 03:20 Body Mass Index 26.61 (70.31 kg, 162.56 cm) bm8 03:20 Pain Scale: Adult bm8 Ana Coma Score: 03:25 Eye Response: spontaneous(4). Motor Response: obeys commands(6). Verbal Response: bm8 oriented(5). Total: 15. ED Course: 03:11 Patient arrived in ED. af3 03:20 Thony Simon, RN is Primary Nurse. bm8 03:22 Triage completed. bm8 03:22 Arm band placed on right wrist. bm8 03:25 Patient has correct armband on for positive identification. Placed in gown. Bed in low bm8 position. Call light in reach. Side rails up X 1. Client placed on continuous cardiac and pulse oximetry monitoring. NIBP monitoring applied. Pulse ox on. NIBP on. Door closed. Noise minimized. Head of bed elevated. 03:25 No provider procedures requiring assistance completed. Maintain EMS IV. Dressing bm8 intact. Good blood return noted. Site clean \T\ dry. Gauge \T\ site: 22g left forearm. Flushed with 10 mL NS. 03:30 Torito Paez MD is Attending Physician. bo1 04:14 Provided Education on: following up with OB. ha1 04:14 IV discontinued, intact, bleeding controlled, No redness/swelling at site. Pressure ha1 dressing applied. Administered Medications: 03:38 Drug: Ondansetron IVP 4 mg IVP once; over 2 minutes Route: IVP; Site: left forearm; bm8 04:15 Follow up: Response: No adverse reaction; Marked relief of symptoms ha1 03:38 Drug: Alum-Mag Hydroxide-Simeth PO Suspension (200 mg-200 mg-20 mg/5 mL) 30 ml PO once bm8 Route: PO; 04:14 Follow up: Response: No adverse reaction; Marked relief of symptoms ha1 Medication: 03:25 VIS not applicable for this client. bm8 Outcome: 04:04 Discharge ordered by . bo1 04:13 Discharged to home ambulatory, ha1 04:13 Condition: stable 04:13 Discharge instructions given to patient, Instructed on discharge instructions, follow up and referral plans. medication usage, Demonstrated understanding of instructions, follow-up care, medications, Prescriptions given X 1, 04:15 Patient left the ED. ha1 Signatures: Lexii Corrigan RN RN ha1 Torito Paez MD MD bo1 Thony Simon RN RN bm8 Elana Magdaleno af3 Corrections: (The following items were deleted from the chart) 03:23 03:22 Home Meds: None; bm8 bm8 03:30 03:20 Onset of symptoms was September 21, 2023 at 00:00 8 bm8
[2023-09-21 04:20] VITALS: TEMP 97.8; O2SAT 99
[2023-09-21 04:21] VITALS: BP 106/50
== END 2023-09-21 04:15 | disposition home or self-care (01) ==
LOC: ER 03:06
DX: O99.613 Diseases of the digestive system complicating pregnancy, third trimester (principal); K29.00 Acute gastritis without bleeding; Z3A.32 32 weeks gestation of pregnancy
CPT/HCPCS: 96374; 99284; J2405